=== PATIENT | female | born 1970 | race Caucasian/White ===

== ENCOUNTER 2016-07-05 14:37 | Outpatient (CLI) | payer MEDICARE, OTHER | END 2016-07-05 14:40 | LOC: LAB 14:37 | PROVIDERS: ATTEND Family Medicine | DX: R73.9 Hyperglycemia, unspecified (principal) | CPT/HCPCS: 36415; 83036 ==

== ENCOUNTER 2016-10-25 11:41 | Outpatient (CLI) | payer MEDICARE, OTHER ==
[2016-10-25 12:11] LABS: BASOPHILS % 0.7 (0.0-1.5); EOSINOPHILS % 5.5 % (0.0-6.8); MEAN CORPUSCULAR HEMOGLOBIN 29.9 pg (28.0-34.0); MEAN CORPUSCULAR VOLUME 91.9 fl (80.0-100.0); NEUTROPHILS # 8.5 # k/uL (1.4-7.7)
[2016-10-25 12:42] LABS: BILIRUBIN,DIRECT 0.1 mg/dL (0.0-0.4)
== END 2016-10-25 11:42 ==
LOC: LAB 11:41
PROVIDERS: ATTEND Internal Medicine
DX: M06.9 Rheumatoid arthritis, unspecified (principal)
CPT/HCPCS: 36415; 80076; 85025

== ENCOUNTER 2017-05-24 10:53 | Outpatient (CLI) | payer MEDICARE, OTHER ==
[2017-05-24 11:20] LABS: BASOPHILS % 0.5 (0.0-1.5); EOSINOPHILS % 3.5 % (0.0-6.8); MEAN CORPUSCULAR HEMOGLOBIN 30.2 pg (28.0-34.0); MEAN CORPUSCULAR VOLUME 90.4 fl (80.0-100.0); MONOCYTES % 3.9 % (0.0-11.0); NEUTROPHILS # 8.6 # k/uL (1.4-7.7)
[2017-05-24 11:44] LABS: eGFR (African) > 60; eGFR (Non-African) > 60
== END 2017-05-24 10:54 ==
LOC: LAB 10:53
PROVIDERS: ATTEND Nurse Practitioner Family
DX: M06.9 Rheumatoid arthritis, unspecified (principal)
CPT/HCPCS: 36415; 80053; 85025

== ENCOUNTER 2018-01-09 13:25 | Emergency (ER) | payer MEDICARE, OTHER ==
[2018-01-09 13:45] VITALS: BP 99/73
--- NOTE | 2018-01-09 14:11 | ED Physician Documentation ---
General Adult - HISTORIAN Historian: patient - HPI Stated Complaint: R hip pain Chief Complaint: Lower Extremity Problem Additional Information: Patient has had a diagnosis of RA for years. Is seeing a career placement specialist. Has developed some increasing pain in the right hip area. No history of trauma. Has a similar episode about one month ago and was given prednisone which seems to help. No swelling noted. No feer or chills noted. - ROS CONST: no problems. denies: fever, chills - PAST HX Past History: other (RA, ) Other History: none Surgeries/Procedures: none Immunizations: UTD Allergies/Adverse Reactions: Allergies Allergy/AdvReac Type Severity Reaction Status Date / Time No Known Drug Allergies Allergy Verified 01/09/18 13:45 Home Medications: Ambulatory Orders Medication Instructions Recorded Fluticasone/Vilanterol [Breo 1 puff INH BID 01/09/18 Ellipta 100-25 Mcg INH] Prednisone 30 mg PO D #15 tablet 01/09/18 - SOCIAL HX Smoking History: non-smoker Alcohol Use: none Drug Use: none - FAMILY HX Family History: No - VITAL SIGNS Vital Signs: Vital Signs Temp Pulse Resp BP Pulse Ox 99 H 16 99/73 100 01/09/18 13:30 01/09/18 13:30 01/09/18 13:30 01/09/18 13:30 - REVIEWED ASSESSMENTS Nursing Assessment Reviewed: Yes Vitals Reviewed: Yes General Adult Physical Exam - PHYSICAL EXAM GENERAL APPEARANCE: mild distress NECK: normal inspection, thyroid normal, supple RESPIRATORY: no resp distress, chest non-tender CVS: reg rate & rhythm, heart sounds normal, equal pulses, no murmur, no gallop SKIN: warm/dry, normal color EXTREMITIES: edema (2 plus), tenderness (over right hip), other NEURO: oriented X3, CN's nml as tested, motor nml, sensation nml Discharge Clincal Impression: Right hip pain, Rheumatoid arthritis Referrals: Mariaa Carballo MD [Primary Care Provider] - 2 Days Condition: Stable Disposition: 01 HOME, SELF-CARE Decision to Admit: NO Date of Decison to Admit: 01/09/18 Decision Time: 14:28
== END 2018-01-09 14:42 | disposition home or self-care (01) ==
LOC: ED 13:25
DX: M25.551 Pain in right hip (principal); M06.9 Rheumatoid arthritis, unspecified
CPT/HCPCS: 99282

== ENCOUNTER 2018-03-03 15:30 | Emergency (ER) | payer MEDICARE, OTHER ==
--- NOTE | 2018-03-03 15:43 | ED Physician Documentation ---
General Adult - HISTORIAN Historian: patient - HPI Stated Complaint: nausea vomiting and diarrhea Chief Complaint: Nausea,Vomiting,Diarrhea Onset: days ago (3) Timing: still present Severity: mild Further Comments: yes (per caregiver she has had this same type of complalint and symptoms since December (once per month) she has not had an appt with PCP. Per pediatric critical care nurse on pt started with diarrhea (no fever, no sick contacts, no new food exposures) and yesterday started to have nausea and vomiting (she is not sure of the number of episodes) and then today she is "dry heaving" (no food intake) she denies any burning with urination or fever. No rash . No pain in abdomen although she states the abdomen is "sore") - ROS CONST: no problems EYES/ENT: denies: sore throat CVS/RESP: denies: chest pain, shortness of breath GI/: vomiting, nausea, diarrhea. denies: abdominal pain, problems urinating MS/SKIN/LYMPH: none NEURO/PSYCH: denies: headache, dizziness - PAST HX Past History: other (RA, depression ) Immunizations: UTD Allergies/Adverse Reactions: Allergies Allergy/AdvReac Type Severity Reaction Status Date / Time No Known Drug Allergies Allergy Verified 01/09/18 13:45 Home Medications: Ambulatory Orders Medication Instructions Recorded Fluticasone/Vilanterol [Breo 1 puff INH BID 01/09/18 Ellipta 100-25 Mcg INH] Prednisone 30 mg PO D #15 tablet 01/09/18 - SOCIAL HX Smoking History: non-smoker Alcohol Use: none Drug Use: none - FAMILY HX Family History: No - VITAL SIGNS Vital Signs: Vital Signs Temp Pulse Resp BP Pulse Ox 99/73 01/09/18 14:42 - REVIEWED ASSESSMENTS Nursing Assessment Reviewed: Yes Vitals Reviewed: Yes Progress - Progress Progress: 1700: decrease in nausea DG 1800: she is asking to go home - denies nausea no pain. She is aware lab is not returned. She is asking to go home and call back if any issues. DG 1900: Pt notified of labs. DG General Adult Physical Exam - PHYSICAL EXAM GENERAL APPEARANCE: no distress EENT: eye inspection normal, ENT inspection normal, no signs of dehydration NECK: normal inspection RESPIRATORY: no resp distress, chest non-tender, breath sounds normal CVS: reg rate & rhythm, heart sounds normal, equal pulses, no murmur ABDOMEN: soft, normal bowel sounds, no distension, tenderness (mild diffuse with palpation ), abnormal bowel sounds (hyperactive all quad ) BACK: normal inspection, no CVA tenderness SKIN: warm/dry, normal color EXTREMITIES: non-tender, no evidence of injury, no edema NEURO: oriented X3 Discharge Clincal Impression: Nausea & vomiting Qualifiers: Vomiting type: unspecified Vomiting Intractability: non-intractable Qualified Code(s): R11.2 - Nausea with vomiting, unspecified Referrals: Mariaa Carballo MD [Primary Care Provider] - 2 Days Comments: 1. Potassium 20 mEq Take 1 by mouth daily x 3 days 2. Follow up with PCP Monday or Monday for lab re draw 3. Increase fluids 4. Zofran 4 mg take 1 by every 8 hours as needed for nausea 5. Return to ER for any concerns Condition: Stable Disposition: 01 HOME, SELF-CARE Decision to Admit: NO Date of Decison to Admit: 03/03/18 Decision Time: 18:03
[2018-03-03] MEDS ORDERED: ONDANSETRON HCL/PF 4 MG/ 2ML VIAL IVP ONE (15:58)
[2018-03-03] MEDS ORDERED: 0.9 % SODIUM CHLORIDE 1,000 ML IV SCH (16:00)
[2018-03-03] MEDS ORDERED: 0.9 % SODIUM CHLORIDE 1,000 ML IV ONE ×3 (16:05→17:00)
[2018-03-03 16:56] LABS: eGFR (Non-African) > 60
[2018-03-03] MEDS ORDERED: POTASSIUM CHLORIDE 20 MEQ TABLET.ER PO ONE (17:50)
[2018-03-03] MEDS ORDERED: POTASSIUM CHLORIDE 20 MEQ TABLET.ER ONE (17:50)
[2018-03-03 18:18] VITALS: BP 132/68
[2018-03-03 18:51] LABS: BASO % 0.5 % (0.0-1.5); EOS % 0.5 % (0.0-6.8); LYMPH ABS # 2.42 thou/uL (0.60-4.00); MCV 83.2 fL (80.0-100.0); MONOCYTE % 6.8 % (0.0-11.0); MONOCYTE ABS # 0.87 thou/uL (0.00-0.90); PLATELET COUNT 499 thou/uL (130-400)
[2018-03-04 07:49] LABS: APPEARANCE,URINE CLEAR (CLEAR); COLOR,URINE YELLOW (YELLOW); OCCULT BLOOD,URINE NEGATIVE (NEGATIVE); UROBILINOGEN URINE 0.2 Eu (0.2-1.0)
== END 2018-03-03 18:16 | disposition home or self-care (01) ==
LOC: ED 15:30
DX: R11.2 Nausea with vomiting, unspecified (principal)
CPT/HCPCS: 80053; 81002; 84132; 84703; 85025; 87086; A9270; J2405; J7030; 96365; 96366; 96375; 99284; S1016

== ENCOUNTER 2018-03-22 14:11 | Outpatient (CLI) | payer MEDICARE, OTHER ==
--- NOTE | 2018-03-22 19:31 | Diagnostic Imaging Report ---
RAUL ZIMMERMAN [facility] [address] [facility].[address] [address] Report Submission Date: Mar 22, 2018 3:17:35 PM CDT Patient Study Name: KOKO SNYDER Date: Mar 22, 2018 2:23:17 PM CDT Modality Type: DX Gender: F Description: PELVIS : 74 Institution: [facility] Physician: RAUL ZIMMERMAN AP and frogleg lateral pelvis History: Chronic hip pain AP and frogleg lateral projections of the pelvis were obtained which demonstrate small osteophytes along the superior and inferior femoral head. Subchondral cysts of the femoral head and acetabulum are present. Overall, these findings are consistent with advanced osteoarthritis of the right hip demonstrating a [id number] appearance. Moderate joint space narrowing of the left hip is present. SI joints are patent. Impression: Severely advanced degenerative disease of the right hip consistent with osteoarthritis. Moderate joint space narrowing of the left hip. Electronically signed on Mar 22, 2018 3:17:35 PM CDT by: Nena MAY
== END 2018-03-22 14:13 ==
LOC: RAD 14:11
PROVIDERS: ATTEND Family Medicine
DX: M25.551 Pain in right hip (principal); M25.552 Pain in left hip
CPT/HCPCS: 72170

== ENCOUNTER 2018-04-04 12:25 | Outpatient (CLI) | payer MEDICARE, OTHER ==
[2018-04-04 14:02] LABS: eGFR (Non-African) > 60
== END 2018-04-04 12:26 ==
LOC: LAB 12:25
PROVIDERS: ATTEND Family Medicine
DX: E87.6 Hypokalemia (principal)
CPT/HCPCS: 36415; 80048

== ENCOUNTER 2018-06-14 10:23 | Outpatient (CLI) | payer MEDICARE, OTHER ==
[2018-06-14 11:33] LABS: MEAN CORPUSCULAR HEMOGLOBIN 26.4 pg (28.0-34.0)
[2018-06-14 11:34] LABS: BASOPHILS % 0.3 (0.0-1.5); EOSINOPHILS % 3.6 % (0.0-6.8); MONOCYTES % 5.3 % (0.0-11.0); NEUTROPHILS # 7.8 # k/uL (1.4-7.7)
[2018-06-15 18:20] LABS: DIRECT BILIRUBIN <0.2 mg/dL (<0.4)
== END 2018-06-14 10:28 | disposition home or self-care (01) ==
LOC: LAB 10:23
PROVIDERS: ATTEND Internal Medicine
DX: M06.9 Rheumatoid arthritis, unspecified (principal)
CPT/HCPCS: 36415; 80076; 85025

== ENCOUNTER 2018-07-12 10:28 | Emergency (ER) | payer MEDICARE, OTHER ==
--- NOTE | 2018-07-12 10:37 | ED Physician Documentation ---
Fall - HISTORIAN Historian: patient - HPI Stated Complaint: fall at entrance to lobby Chief Complaint: Fall Onset: just prior to arrival Where: other (hospital lobby) Context: slipped r: mild Associated Symptoms:: no loss of consciousness Location of Pain/Injury: other (denies any pain ) Injury to Right Extremity: none Injury to Left Extremity: none Further Comments: yes (She was found on her knees after falling in the entrance door. She denies any complaints.) - ROS CONST: no problems MS/SKIN/LYMPH: denies: weakness, numbness, neck pain, back pain EYES/ENT: none CVS/RESP: none GI/: denies: problems urinating, nausea, vomiting - PAST HX Past History: none Allergies/Adverse Reactions: Allergies Allergy/AdvReac Type Severity Reaction Status Date / Time No Known Drug Allergies Allergy Verified 01/09/18 13:45 Home Medications: Ambulatory Orders Medication Instructions Recorded Fluticasone/Vilanterol [Breo 1 puff INH BID 01/09/18 Ellipta 100-25 Mcg INH] - SOCIAL HX Smoking History: non-smoker Alcohol Use: none Drug Use: none - FAMILY HX Family History: none - VITAL SIGNS Vital Signs: Vital Signs Temp Pulse Resp BP Pulse Ox 132/68 03/03/18 18:16 - REVIEWED ASSESSMENTS Nursing Assessment Reviewed: Yes Vitals Reviewed: Yes Fall Physical Exam - Physical Exam General Appearance: no acute distress Head: non-tender, no swelling Neck: non-tender Eye: SORAYA ENT: nml external inspection Resp/CVS: chest non-tender, breath sounds nml, no resp. distress, heart sounds nml Abdomen: soft, no distension Neuro: oriented x3, CN's nml as tested, sensation nml, motor nml, mood/affect nml, radar scientist nml Skin: color nml Back: normal inspection Extremities: atraumatic, pelvis stable, hips non-tender, no pedal edema, nml ROM Joint: joints nml, nml ROM, Nml gait/weight bearing - [place] Coma Score Eyes Open: Spontaneous Speech: Oriented Motor: Obeys Commands Discharge Clincal Impression: Fall Qualifiers: Encounter type: initial encounter Qualified Code(s): W19.XXXA - Unspecified fall, initial encounter Referrals: Mariaa Carballo MD [Primary Care Provider] - 2 Days Comments: 1. No change in meds 2. Denies any pain or concerns 3. Follow up with PCP in 2-4 days 4. Return to ER for any increased or added concerns Condition: Stable Disposition: 01 HOME, SELF-CARE Decision to Admit: NO Date of Decison to Admit: 07/12/18 Decision Time: 10:45
[2018-07-12 10:54] VITALS: BP 113/64
== END 2018-07-12 10:45 | disposition home or self-care (01) ==
LOC: ED 10:28
DX: Z53.8 Procedure and treatment not carried out for other reasons (principal)

== ENCOUNTER 2018-07-12 10:52 | Outpatient (CLI) | payer MEDICARE, OTHER ==
[2018-07-12 10:39] VITALS: BP 113/67
[2018-07-12 11:37] LABS: APPEARANCE,URINE CLOUDY (CLEAR); COLOR,URINE YELLOW (YELLOW); OCCULT BLOOD,URINE NEGATIVE (NEGATIVE)
== END 2018-07-12 10:53 ==
LOC: LAB 10:52
PROVIDERS: ATTEND Orthopaedic Surgery
DX: M16.11 Unilateral primary osteoarthritis, right hip (principal)
CPT/HCPCS: 36415; 81002; 85651; 86140

== ENCOUNTER 2018-09-13 10:30 | Outpatient (CLI) | payer MEDICARE, OTHER ==
[2018-09-13 11:41] LABS: MEAN CORPUSCULAR HEMOGLOBIN 26.4 pg (28.0-34.0)
[2018-09-13 11:45] LABS: EOSINOPHILS % 5 % (0-7); MONOCYTES % 8 % (0-11); SEGMENTED NEUTROPHILS % 65 % (39-79)
== END 2018-09-13 10:32 ==
LOC: LAB 10:30
PROVIDERS: ATTEND Internal Medicine
DX: M06.9 Rheumatoid arthritis, unspecified (principal)
CPT/HCPCS: 36415; 80076; 85025

== ENCOUNTER 2018-10-25 08:47 | Outpatient (CLI) | payer MEDICARE, OTHER ==
--- NOTE | 2018-10-30 14:47 | OP Clinic Progress Note ---
SUBJECTIVE: Kassandra Solorzano is a 48-year-old female who presents with her caregiver today for a right great toenail that has been hurting on occasion. The patient is not complaining of any pain with pressing on it, however, she states it does hurt when she stubs her toe at the tip as well as on the lateral border. She does not admit to any drainage, purulence or malodor of any kind. She does not admit to any fevers, chills, nausea, vomiting, shortness of breath or chest pain at this time. OBJECTIVE: Vitals: Temperature 97.6 degrees Fahrenheit, heart rate 96, respiration rate 20, blood pressure 123/52. O2 saturation is 97% on room air. Vascular: 1+ DP and PT pulses, right foot. Capillary refill time is less than 3 seconds to the toes, however, of the right foot. There is no edema noted, right foot. Dermatologic: There is no paronychia, purulence, erythema, malodor or drainage noted. There is obvious evidence of an incurvated lateral edge of the right great toenail that seems to be incurvating into the skin in the distal half of the nail laterally. It is also perhaps beginning to abut the end of the toe at the skin level. Musculoskeletal: I am not able to elicit any pain with palpation at this time. There are several digital contractures noted bilateral feet. Neurologic: Light touch sensation is intact to the toes, right foot. ASSESSMENT AND PLAN: Onychocryptosis, right great toe. PROCEDURE #1: Right great toenail was trimmed in a slant back procedure to remove the offending border of the nail on the distal tip as well as the lateral distal border. The patient tolerated this well. There was some raw tissue remaining in the corner where the nail was removed. Triple antibiotic ointment and a Band-Aid was applied. The patient was instructed to continue doing this daily for about 3 days or until healed. The patient is to return to the clinic as needed if this returns. If pain returns or if any signs of infection, the patient is to return and we will consider doing a partial or total nail avulsion temporary versus permanent. We will discuss this at a future visit if needed. The patient knows as well as the caregiver that I am not confident that this will not return. We will see if we do well as she was not having any pain with palpation today with just a slant back procedure. We will see her as needed. Michael Paez D.P.M. (Dictated/Not Signed) Rama Job#: [id number] MTDD
== END 2018-10-25 08:50 ==
LOC: POD 08:47
PROVIDERS: ATTEND Podiatrist Foot & Ankle Surgery
DX: L60.0 Ingrowing nail (principal)
CPT/HCPCS: 11720; 99212; A4554

== ENCOUNTER 2019-03-14 10:39 | Outpatient (CLI) | payer MEDICARE, OTHER ==
[2019-03-14 11:11] LABS: BASOPHILS % 0.4 % (0.0-1.5); NEUTROPHILS # 5.6 # k/uL (1.4-7.7)
== END 2019-03-14 10:42 ==
LOC: LAB 10:39
PROVIDERS: ATTEND Internal Medicine
DX: M06.9 Rheumatoid arthritis, unspecified (principal)
CPT/HCPCS: 36415; 80076; 85025

== ENCOUNTER 2019-05-20 10:07 | Emergency (ER) | payer MEDICARE, OTHER ==
--- NOTE | 2019-05-20 10:33 | ED Physician Documentation ---
General Adult - HISTORIAN Historian: patient - HPI Stated Complaint: B/l LE edema, weeping; conjunctivitis Chief Complaint: General Adult Onset: days ago (4) Timing: still present Severity: moderate Further Comments: yes (Pt is a 49 yo female with marked LE edema b/l and weepy ulcerations. Pt was to have hip surgery in March, but this was postponed bec ause of the LE problem, which has gotten much worse. Pt also c/o b/l conjunctivitis and sclera appear injected b/l. No cough, sore throat, or systemic complaint.) - ROS CONST: no problems EYES/ENT: other (b/l scleral injection) CVS/RESP: none GI/: none MS/SKIN/LYMPH: leg swelling (b/l with weepy edema and ulceration) - PAST HX Past History: other (anemia, COPD, Depression, GERD, RA, MMR) Surgeries/Procedures: other (cleft palette repair) Allergies/Adverse Reactions: Allergies Allergy/AdvReac Type Severity Reaction Status Date / Time No Known Drug Allergies Allergy Verified 05/20/19 10:57 - SOCIAL HX Smoking History: cigarettes - FAMILY HX Family History: No (unk) - VITAL SIGNS Vital Signs: Vital Signs Temp Pulse Resp BP Pulse Ox 113/67 07/12/18 10:53 - REVIEWED ASSESSMENTS Nursing Assessment Reviewed: Yes Vitals Reviewed: Yes Progress - Progress Progress: Rx Polymyxin B/Trimethoprim ophthalmic drops. 1 drop in each eyes every 3 hours. Max 6 drop/eye/day. Rx Keflex 500 mg. Take one every 8 hours for 10 days. Follow up with [facility] on 05/29/19 at 1:00 pm. ( and ask for Wound Clinic) Home health to apply [facility] while awaiting Wound Clinic appointment. General Adult Physical Exam - PHYSICAL EXAM GENERAL APPEARANCE: no distress EENT: pharynx normal, other (b/l scleral injection, crusting) NECK: normal inspection, supple RESPIRATORY: no resp distress, chest non-tender, other (distant breath sounds) CVS: reg rate & rhythm, heart sounds normal ABDOMEN: soft, no organomegaly, normal bowel sounds BACK: normal inspection, no CVA tenderness SKIN: other (b/l 3+ LE weepy edema with ulcerations) EXTREMITIES: edema (b/l 3+ LE weepy edema with ulcerations) NEURO: oriented X3, motor nml, sensation nml Discharge Clincal Impression: b/l LE edema with ulcerations, weeping Conjunctivitis Qualifiers: Conjunctivitis type: acute Acute conjunctivitis type: unspecified Laterality: bilateral Qualified Code(s): H10.33 - Unspecified acute conjunctivitis, bilateral Referrals: Mariaa Carballo MD [Primary Care Provider] - Condition: Stable Disposition: 01 HOME, SELF-CARE Decision to Admit: NO Decision Time: 12:28
[2019-05-20 11:16] LABS: BASOPHILS % 0.5 % (0.0-1.5)
[2019-05-20 11:27] LABS: eGFR (Non-African) > 60
[2019-05-20 11:42] VITALS: BP 117/69
== END 2019-05-20 12:33 | disposition home or self-care (01) ==
LOC: ED 10:07
DX: L97.919 Non-pressure chronic ulcer of unspecified part of right lower leg with unspecified severity (principal); L97.929 Non-pressure chronic ulcer of unspecified part of left lower leg with unspecified severity; R60.0 Localized edema; R45.83 Excessive crying of child, adolescent or adult; H10.33 Unspecified acute conjunctivitis, bilateral; F17.210 Nicotine dependence, cigarettes, uncomplicated
CPT/HCPCS: 80053; 83880; 85025; 87040; 87070; 87186; 99281; 99284; S1016

== ENCOUNTER 2019-06-05 11:02 | Outpatient (CLI) | payer MEDICARE, OTHER ==
[2019-06-05 11:28] LABS: BASOPHILS % 0.4 % (0.0-1.5)
[2019-06-05 11:29] LABS: NEUTROPHILS # 7.5 # k/uL (1.4-7.7)
== END 2019-06-05 11:07 ==
LOC: LAB 11:02
PROVIDERS: ATTEND Internal Medicine
DX: M06.9 Rheumatoid arthritis, unspecified (principal)
CPT/HCPCS: 36415; 80076; 85025

== ENCOUNTER 2019-06-21 10:55 | Emergency (ER) | payer MEDICARE, OTHER ==
[2019-06-21] MEDS ORDERED: TETRACAINE 0.5% OPTH 5 ML BOTTLE OS ONE (11:26)
[2019-06-21 11:32] VITALS: BP 126/88
--- NOTE | 2019-06-21 11:32 | ED Physician Documentation ---
Eye Problem - HISTORIAN Historian: patient - HPI Stated Complaint: left eye pain/redness Chief Complaint: Eye Problems Additional Information: Patient presents to ED with a one day history of left eye pain and redness. Patient was treated a month ago for conjunctivitis and given antibiotic (polymyxin) with little to no improvement. She was seen by Ophthlamology, given prednisolone with near resolution in 24 hours. Her last dose of Prednisolone was on 06/05/19. Patient states the eye is sensitive to light and is very painful. Patient has a history of RA and is on methatrexate and Humira. Associated symptoms: pain, sensitivity to light Location: left eye Severity: moderate Apparent Injury: no Where: home Further Comments: no - ROS CONST: no problems MS/SKIN/LYMPH: denies: weakness CVS/RESP: none EYES/ENT: none GI/: denies: nausea, vomiting NEURO: denies: headache - PAST HX Past History: other (RA) Allergies/Adverse Reactions: Allergies Allergy/AdvReac Type Severity Reaction Status Date / Time No Known Drug Allergies Allergy Verified 06/21/19 11:26 Home Medications: Ambulatory Orders Medication Instructions Recorded Erythromycin 0.5% Opth [Ak Mycin 3.5 gm OP Q8 10 Days #1 tube 06/21/19 0.3% Opth Oint] Prednisolone Acetate/Pf 5 ml OP Q8 #5 ml 06/21/19 [Prednisolone Acet 1% Eye Drop] - SOCIAL HX Smoking History: cigarettes, greater than 1 pack/day Alcohol Use: none Drug Use: none - FAMILY HX Family History: none - VITAL SIGNS Vital Signs: Vital Signs Temp Pulse Resp BP Pulse Ox 117/69 05/20/19 12:33 - REVIEWED ASSESSMENTS Nursing Assessment Reviewed: Yes Vitals Reviewed: Yes ED Results Lab/Radiology - Orders Orders: ED Orders Category Date Time Status Tetracaine 0.5% Opth [Pontocaine Pf 0.5% Opth] Med 06/21/19 11:26 Once 2 drop OS NOW ONE Eye Problem Physical Exam - Physical Exam General Appearance: no acute distress, alert Examined with Slit Lamp: No Visual Acuity: see nursing assessment Eyelids: erythema (L) Conjunctiva and Sclera: injected (L) Corneas: nml inspection EOM: intact Pupils: equal Head/ENT: nml inspection Skin: nml color Neck/Back: nml inspection Respiratory: no resp distress, breath sounds normal CVS: reg rate & rhythm, heart sounds normal Abdomen: non-tender Neuro/Psych: oriented x3 Discharge Clincal Impression: Conjunctivitis Qualifiers: Conjunctivitis type: acute Acute conjunctivitis type: unspecified Laterality: left Qualified Code(s): H10.32 - Unspecified acute conjunctivitis, left eye Prescriptions: Erythromycin 0.5% Opth [Ak Mycin 0.3% Opth Oint] 3.5 gm OP Q8 10 Days #1 tube Prednisolone Acetate/Pf [Prednisolone Acet 1% Eye Drop] 5 ml OP Q8 #5 ml Referrals: Mariaa Carballo MD [Primary Care Provider] - 2 Days Additional Instructions: 1. Erythromycin ointment and Prednisolone drops to left eye every 8 hours. Begin treatment to right eye if symptoms arise. Continue these until seen by Ophthalmology, follow his instructions 2. Follow up with Cleaning Team Member as soon as possible 3. Keep eye covered until light sensitivity resolves 4. Tylenol 650mg every 4 hours and/or Ibuprofen 600mg every 6 hours as needed for pain 5. Follow up with PCP within 1 week 6. Return to ER for new or worsening symptoms Condition: Stable Disposition: 01 HOME, SELF-CARE Decision to Admit: NO Date of Decison to Admit: 06/21/19 Decision Time: 11:42
== END 2019-06-21 11:53 | disposition home or self-care (01) ==
LOC: ED 10:55
DX: H10.32 Unspecified acute conjunctivitis, left eye (principal)
CPT/HCPCS: 99282; 99284